=== PATIENT | male | born 1995 | race Two or more races ===

== ENCOUNTER 2018-11-24 00:09 | Emergency (ER) | payer BC ==
[~2018-11-24] VITALS: Ht 167.6 cm; Wt 61.2 kg
[2018-11-24 01:00] VITALS: BP 124/62
--- NOTE | 2018-11-24 01:00 | NUR ---
ED Nurse Note: Patient walk in c/o migraine since AM. Patient states he feels weak and dizzy. Headache is unrelieved by tylenol. Current tem 100.8 ERMD made aware. AO4. NAD.
--- NOTE | 2018-11-24 01:05 | NUR ---
ED Nurse Note: Received verbal order from DIANN Borges for Flu swab, NS 1L bolus and Ibuprofen PO 600 mg; noted and carried out.
--- NOTE | 2018-11-24 02:45 | NUR ---
ED Nurse Note: Received verbal order from MD Jony for Rocephin 1gm NS 55ml IVP; noted and carried out.
[2018-11-24] MEDS ORDERED: IBUPROFEN600 MG ORAL (02:58)
[2018-11-24] MEDS ORDERED: AMOXICILLIN500 MG ORAL (02:58)
[2018-11-24 03:25] VITALS: BP 124/62
--- NOTE | 2018-11-24 03:49 | Emergency Room Report ---
History of Present Illness General Chief Complaint: Headache Source: Patient Present Illness [facility] This is a 23-year-old male presented after increased fever and headache. Patient gradual onset of symptoms. He reportedly had increased lightheadedness. He had been noted to have increased sore throat. He denied any cough. He reports having some increased painful swallowing. He denies any vomiting or diarrhea. He reports having a increased headache he denies any voice changes. Patient is noted to have some subjective fever. Allergies: Coded Allergies: No Known Allergies (Unverified , 11/24/18) Patient History Past Medical History: see triage record Reviewed Nursing Documentation: PMH: Agreed; PSxH: Agreed Nursing Documentation-PMH Past Medical History: No Stated History Review of Systems All Other Systems: negative except mentioned in HPI Physical Exam Vital Signs Date Time Temp Pulse Resp B/P (MAP) Pulse Ox O2 Delivery O2 Flow Rate FiO2 11/24/18 00:13 100.8 122 16 124/62 95 11/24/18 03:25 Room Air Sp02 EP Interpretation: reviewed, normal General Appearance: normal inspection, well appearing, no apparent distress, alert, GCS 15 Head: atraumatic ENT: normal ENT inspection, hearing grossly normal, normal voice, pharyngeal erythema Neck: normal inspection, full range of motion, supple, no bony tend Respiratory: normal inspection, lungs clear, normal breath sounds, no respiratory distress, no retraction, no wheezing Cardiovascular #1: regular rate, rhythm, no edema Gastrointestinal: normal inspection, normal bowel sounds, non tender, soft, no guarding, no hernia Genitourinary: no CVA tenderness Musculoskeletal: normal inspection, back normal, normal range of motion Neurologic: normal inspection, alert, oriented x3, responsive, [employer] III-XII nml as tested, speech normal Psychiatric: normal inspection, judgement/insight normal, mood/affect normal Skin: normal inspection, normal color, no rash Medical Decision Making Diagnostic Impression: Primary Impression: Pharyngitis ER Course Patient presented for sore throat. Differential diagnosis included but was not limited to meningitis, exudative tonsillitis, retropharyngeal abscess, epiglottitis, strep pharyngitis. Because of complexity of patient's case laboratory testing and imaging studies were ordered. Last Vital Signs Date Time Temp Pulse Resp B/P (MAP) Pulse Ox O2 Delivery O2 Flow Rate FiO2 11/24/18 03:25 16 124/62 97 Room Air 3/13/19 01:00 100.8 96 Status: improved Disposition: HOME, SELF-CARE Condition: Stable Scripts Amoxicillin* (AMOXIL*) 500 Mg Capsule 500 MG ORAL THREE TIMES A DAY, #21 CAP Prov: Jake Borges MD 11/24/18 Ibuprofen* (MOTRIN*) 600 Mg Tablet 600 MG ORAL Q8H PRN for For Pain, #30 TAB 0 Refills Prov: Jake Borges MD 11/24/18 Patient Instructions: Pharyngitis Jake Borges MD Nov 24, 2018 03:49
[2018-11-24 04:22] LABS: ALANINE AMINOTRANSFERASE 42 U/L (12-78); ALBUMIN 4.6 G/DL (3.4-5.0); ALBUMIN/GLOBULIN RATIO 1.2 (1.0-2.7); ALKALINE PHOSPHATASE 100 U/L (46-116); ANION GAP 11 mmol/L (5-15); ASPARTATE AMINO TRANSFERASE 25 U/L (15-37); BILIRUBIN,TOTAL 0.9 MG/DL (0.2-1.0); BLOOD UREA NITROGEN 14 mg/dL (7-18); CALCIUM 9.3 MG/DL (8.5-10.1); CARBON DIOXIDE 27 MMOL/L (21-32); CHLORIDE 100 MMOL/L (98-107); CREATININE 0.9 MG/DL (0.55-1.30); HEMOGLOBIN 16.2 G/DL (14.2-18.0); POTASSIUM 3.1 MMOL/L (3.5-5.1); RED BLOOD COUNT 5.04 M/UL (4.70-6.10); SODIUM 138 MMOL/L (136-145); WHITE BLOOD COUNT 16.6 K/UL (4.8-10.8)
[2018-11-24 04:23] LABS: HEMATOCRIT 45.7 % (42.0-52.0); MEAN CORPUSCULAR VOLUME 91 FL (80-99); PLATELET COUNT 231 K/UL (150-450); RED CELL DISTRIBUTION WIDTH 10.4 % (11.6-14.8)
== END 2018-11-24 03:25 | disposition home or self-care (01) ==
LOC: EMR 02:16
DX: J02.9 Acute pharyngitis, unspecified (principal)
CPT/HCPCS: 36415; 80053; 85025; 86710; 99282; J0696; J8499